=== PATIENT | female | born 1930 | race Caucasian/White ===

== ENCOUNTER 2016-11-24 12:13 | Inpatient (IN) | payer OTHER ==
[~2016-11-24] VITALS: Ht 160 cm; Wt 86.3 kg
[2016-11-24] MEDS ORDERED: DEXTROSE 50% SYRINGE 50 ML IV ONE (12:30)
[2016-11-24] MEDS ORDERED: DEXTROSE (50%) 50ML SYRG IV ONE (13:00)
[2016-11-24 13:06] LABS: Basophils # (auto) 0 uL; Eosinophils # (auto) 0 uL; Hematocrit 44.7 % (36.0-46.0); Hemoglobin 14.5 g/dL (12.2-16.2); Lymphocytes # (auto) 0.4 uL; Lymphocytes % (auto) 3.1 % (10.0-50.0); Mean Corpuscular Hemoglobin 30.9 pg (28.0-32.0); Mean Corpuscular Hgb Conc. 32.4 g/dL (32.0-36.0); Mean Corpuscular Volume 95.5 fL (80.0-100.0); Mean Platelet Volume 8.7 fL (7.4-10.4); Monocytes # (auto) 0.3 uL; Monocytes % (auto) 2.5 % (0.0-12.0); Neutrophils # (auto) 12.8 uL; Neutrophils % (auto) 94.4 % (37.0-80.0); Platelet Count (auto) 317 10^3/uL (140-450); Red Cell Distribution Width 13.3 % (11.6-16.0); White Blood Cell 13.6 10^3/uL (4.4-10.8)
[2016-11-24 13:14] LABS: BUN/Creatinine Ratio 15.8; Calcium 9.3 mg/dL (8.5-10.1); Magnesium 2.4 mg/dL (1.6-2.6); Potassium 3.7 mmol/L (3.5-5.1)
[2016-11-24 13:26] LABS: Bilirubin, Total 0.5 mg/dL (0.2-1.0); Total Protein 7.4 g/dL (6.4-8.2)
[2016-11-24] MEDS ORDERED: SODIUM CHLORIDE 0.9% 1,000 ML IV ONE (13:45)
[2016-11-24] MEDS ORDERED: LEVOFLOXACIN 500MG 100 ML IV ONE (13:45)
[2016-11-24] MEDS ORDERED: IPRATROPIUM BROM 0.5 MG/2.5ML INH SOL NEB ONE (13:45)
[2016-11-24] MEDS ORDERED: methylPREDNISolone SOD SUCC 125 MG/2 ML VL IV ONE (13:45)
[2016-11-24] MEDS ORDERED: ALBUTEROL SULF 2.5 MG/0.5ML(0.5%) NEB SOLN NEB ONE (13:45)
[2016-11-24 15:22] LABS: Lactic Acid 2.4 mmol/L (0.4-2.0)
[2016-11-24 15:28] LABS: REFLEX LACTIC ACID YES OR NO YES
[2016-11-24 15:58] LABS: B-Type Natriuretic Peptide 155.13 pg/mL (0-100); Temperature: 21.9 C (20.0-25.0)
[2016-11-24 17:34] LABS: Urine Bilirubin Negative (Negative); Urine Blood TRACE /uL (Negative); Urine Color Yellow (Yellow); Urine Glucose TRACE mg/dL (Normal); Urine Hyaline Cast FEW /lpf (0 - 2); Urine Nitrite Negative (Negative); Urine RBC 3 /hpf (0 - 4); Urine Squamous Epithelial Cell MOD /hpf (<5); Urine Urobilinogen Normal (Negative); Urine WBC Clumps PRESENT /hpf (None Seen)
[2016-11-24 17:54] LABS: Urine Ketone 1+ (Negative)
[2016-11-24] MEDS ORDERED: DEXTROSE (50%) 50ML SYRG IV PRN (18:00)
[2016-11-24] MEDS ORDERED: MORPHINE SULF INJ 2 MG/ML SYRINGE 1ML IV PRN ×2 (18:15)
[2016-11-24] MEDS ORDERED: TEMAZEPAM 15 MG CAP PO PRN (18:15)
[2016-11-24] MEDS ORDERED: DOCUSATE SOD 100 MG CAP PO PRN (18:15)
[2016-11-24] MEDS ORDERED: NITROGLYCERIN 0.4 MG SL TAB SL PRN (18:15)
[2016-11-24] MEDS ORDERED: ACETAMINOPHEN 325 MG TAB PO PRN (18:15)
[2016-11-24] MEDS ORDERED: HYDROcodone-ACET 5/325MG TAB PO PRN (18:15)
[2016-11-24] MEDS ORDERED: ONDANSETRON HCL 4 MG/2 ML VIAL IV PRN (18:15)
[2016-11-24 19:43] VITALS: BP 96/57
[2016-11-24 19:46] VITALS: BP 168/69
[2016-11-24] MEDS: ACCU-CHEK COMFORT CURVE STRIP VI SCH (21:51)
[2016-11-24 22:00] VITALS: BP 96/57
[2016-11-24] MEDS: ATORVASTATIN 20 MG TAB PO SCH (22:07)
[2016-11-24] MEDS: INSULIN DETEMIR(LEVEMIR) 1unit/0.01ml Soln (100units/ml) SC SCH (22:15)
[2016-11-24] MEDS: InsuLIN REG 1unit/0.01ml Soln (100units/ml) SC SCH (22:15)
[2016-11-24] MEDS: IPRATROPIUM BROM 0.5 MG/2.5ML INH SOL NEB SCH (22:45)
[2016-11-24] MEDS: ALBUTEROL SULF 2.5 MG/0.5ML(0.5%) NEB SOLN NEB SCH (22:45)
[2016-11-24] MEDS ORDERED: ASPI-498 PO (23:23)
[2016-11-24] MEDS ORDERED: FURO40TA4 PO (23:23)
[2016-11-24] MEDS ORDERED: HYDR1TAB97 PO (23:23)
[2016-11-24] MEDS ORDERED: INSLANTI SC ×2 (23:23)
[2016-11-24] MEDS ORDERED: LEVO200I5 PO (23:23)
[2016-11-24] MEDS ORDERED: MULTLIQ29 OR (23:23)
[2016-11-24] MEDS ORDERED: LOVA40TA72 PO (23:23)
[2016-11-24] MEDS ORDERED: CHOL100047 PO (23:23)
[2016-11-24] MEDS ORDERED: AMLO10TA2 PO (23:23)
[2016-11-24] MEDS ORDERED: LOS25T PO (23:23)
[2016-11-25] MEDS: methylPREDNISolone SOD SUCC 125 MG/2 ML VL IV SCH ×5 (00:14→23:56)
[2016-11-25] MEDS: SODIUM CHLOR 0.9% PF (SALINE LOCK) 10ML VIAL IV SCH ×4 (00:15→23:57)
[2016-11-25] MEDS ORDERED: PNEUMOCOCCAL VACC POLYS 25 MCG/0.5 ML VIAL IM ONE (04:15)
[2016-11-25] MEDS ORDERED: INFLUENZA QUAD 2016-2017 0.5 ML SYRG IM ONE (04:15)
[2016-11-25 05:00] VITALS: BP 136/66
[2016-11-25 06:36] LABS: Basophils # (auto) 0 uL; Eosinophils # (auto) 0 uL; Eosinophils % (auto) 0.1 % (0.0-7.0); Hematocrit 37.3 % (36.0-46.0); Hemoglobin 12.3 g/dL (12.2-16.2); Lymphocytes # (auto) 0.2 uL; Lymphocytes % (auto) 4.6 % (10.0-50.0); Mean Corpuscular Hgb Conc. 32.8 g/dL (32.0-36.0); Mean Corpuscular Volume 94.4 fL (80.0-100.0); Monocytes # (auto) 0 uL; Monocytes % (auto) 0.3 % (0.0-12.0); Platelet Count (auto) 241 10^3/uL (140-450); Red Cell Distribution Width 13.1 % (11.6-16.0); White Blood Cell 5.2 10^3/uL (4.4-10.8)
[2016-11-25 06:39] LABS: Albumin 2.6 g/dL (3.4-5.0); BUN/Creatinine Ratio 17.8; Bilirubin, Total 0.5 mg/dL (0.2-1.0); Calcium 8.7 mg/dL (8.5-10.1); Potassium 4.1 mmol/L (3.5-5.1); Total Protein 6.2 g/dL (6.4-8.2)
[2016-11-25] MEDS: ACCU-CHEK COMFORT CURVE STRIP VI SCH ×4 (07:02→22:00)
[2016-11-25] MEDS: LEVOTHYROXINE SODIUM 50 MCG TAB PO SCH (07:16)
[2016-11-25] MEDS: INSULIN DETEMIR(LEVEMIR) 1unit/0.01ml Soln (100units/ml) SC SCH ×2 (07:22→22:00)
[2016-11-25] MEDS: InsuLIN REG 1unit/0.01ml Soln (100units/ml) SC SCH ×4 (07:22→22:00)
[2016-11-25] MEDS: IPRATROPIUM BROM 0.5 MG/2.5ML INH SOL NEB SCH ×3 (07:24→22:20)
[2016-11-25] MEDS: ALBUTEROL SULF 2.5 MG/0.5ML(0.5%) NEB SOLN NEB SCH ×3 (07:24→22:20)
[2016-11-25] MEDS: Boost Glucose Control 8 Ounces PO SCH ×3 (08:29→17:53)
[2016-11-25 09:00] VITALS: BP 140/62
[2016-11-25] MEDS: MULTIPLE VITAMIN TAB PO SCH (09:34)
[2016-11-25] MEDS: ASPirin-EC 81 mg tab PO SCH (09:34)
[2016-11-25] MEDS: FUROSEMIDE 40 MG TAB PO SCH (09:34)
[2016-11-25] MEDS: amLODIPine BESYLATE 5 MG TAB PO SCH (09:35)
[2016-11-25] MEDS: FAMOTIDINE 20 MG TAB PO SCH (09:35)
[2016-11-25] MEDS: LOSARTAN POTASSIUM 25 MG TAB PO SCH (09:35)
[2016-11-25] MEDS: BUDESONIDE (INHALATION) 0.5 MG/2 ML NEB NEB SCH ×2 (10:07→22:20)
[2016-11-25 13:00] VITALS: BP 139/61
[2016-11-25 15:00] VITALS: BP 140/58
[2016-11-25 22:00] VITALS: BP 126/70
[2016-11-25] MEDS: ATORVASTATIN 20 MG TAB PO SCH (22:00)
[2016-11-26 05:00] VITALS: BP 146/71
[2016-11-26] MEDS: methylPREDNISolone SOD SUCC 125 MG/2 ML VL IV SCH ×3 (06:24→18:00)
[2016-11-26] MEDS: LEVOTHYROXINE SODIUM 50 MCG TAB PO SCH (06:24)
[2016-11-26] MEDS: SODIUM CHLOR 0.9% PF (SALINE LOCK) 10ML VIAL IV SCH ×2 (06:25→14:00)
[2016-11-26 06:45] LABS: Basophils # (auto) 0 uL; Eosinophils # (auto) 0 uL; Hematocrit 36.7 % (36.0-46.0); Hemoglobin 12.2 g/dL (12.2-16.2); Lymphocytes # (auto) 0.3 uL; Lymphocytes % (auto) 3.6 % (10.0-50.0); Mean Corpuscular Hemoglobin 31.4 pg (28.0-32.0); Mean Corpuscular Hgb Conc. 33.2 g/dL (32.0-36.0); Mean Corpuscular Volume 94.5 fL (80.0-100.0); Mean Platelet Volume 8.5 fL (7.4-10.4); Monocytes # (auto) 0.1 uL; Monocytes % (auto) 1.5 % (0.0-12.0); Neutrophils # (auto) 8.1 uL; Neutrophils % (auto) 94.9 % (37.0-80.0); Platelet Count (auto) 288 10^3/uL (140-450); Red Cell Distribution Width 13.4 % (11.6-16.0); White Blood Cell 8.6 10^3/uL (4.4-10.8)
[2016-11-26] MEDS: IPRATROPIUM BROM 0.5 MG/2.5ML INH SOL NEB SCH ×3 (06:57→22:20)
[2016-11-26] MEDS: ALBUTEROL SULF 2.5 MG/0.5ML(0.5%) NEB SOLN NEB SCH ×3 (06:57→22:20)
[2016-11-26] MEDS: BUDESONIDE (INHALATION) 0.5 MG/2 ML NEB NEB SCH ×2 (07:09→22:20)
[2016-11-26] MEDS: ACCU-CHEK COMFORT CURVE STRIP VI SCH ×4 (07:20→22:00)
[2016-11-26] MEDS: InsuLIN REG 1unit/0.01ml Soln (100units/ml) SC SCH ×4 (07:22→22:00)
[2016-11-26] MEDS: INSULIN DETEMIR(LEVEMIR) 1unit/0.01ml Soln (100units/ml) SC SCH ×2 (07:23→22:00)
[2016-11-26] MEDS: Boost Glucose Control 8 Ounces PO SCH ×3 (08:00→18:00)
[2016-11-26 08:32] LABS: BUN/Creatinine Ratio 20.4; Calcium 8.7 mg/dL (8.5-10.1)
[2016-11-26 09:00] VITALS: BP 122/67
[2016-11-26] MEDS: ASPirin-EC 81 mg tab PO SCH (09:26)
[2016-11-26] MEDS: FAMOTIDINE 20 MG TAB PO SCH (09:27)
[2016-11-26] MEDS: LOSARTAN POTASSIUM 25 MG TAB PO SCH (09:27)
[2016-11-26] MEDS: amLODIPine BESYLATE 5 MG TAB PO SCH (09:27)
[2016-11-26] MEDS: MULTIPLE VITAMIN TAB PO SCH (09:28)
[2016-11-26] MEDS: FUROSEMIDE 40 MG TAB PO SCH (09:28)
[2016-11-26] MEDS ORDERED: cefTRIAXone 1GM/50ML D5W 50 ML IV ONE (11:00)
[2016-11-26] MEDS ORDERED: AZITHROMYCIN 500MG/D5W 250ML 250 ML IV ONE (11:30)
[2016-11-26 13:00] VITALS: BP 139/61
[2016-11-26 17:14] VITALS: BP 144/64
[2016-11-26] MEDS: ATORVASTATIN 20 MG TAB PO SCH (21:51)
[2016-11-26 22:00] VITALS: BP 111/58
[2016-11-27 04:51] LABS: Basophils # (auto) 0 uL; Eosinophils # (auto) 0 uL; Hematocrit 39.7 % (36.0-46.0); Lymphocytes # (auto) 0.4 uL; Lymphocytes % (auto) 3.8 % (10.0-50.0); Mean Corpuscular Hemoglobin 30.9 pg (28.0-32.0); Mean Corpuscular Hgb Conc. 32.7 g/dL (32.0-36.0); Mean Corpuscular Volume 94.6 fL (80.0-100.0); Mean Platelet Volume 8.6 fL (7.4-10.4); Monocytes # (auto) 0.1 uL; Monocytes % (auto) 1.2 % (0.0-12.0); Neutrophils # (auto) 9.1 uL; Platelet Count (auto) 316 10^3/uL (140-450); Red Cell Distribution Width 13.2 % (11.6-16.0); White Blood Cell 9.6 10^3/uL (4.4-10.8)
[2016-11-27 05:00] VITALS: BP 130/53
[2016-11-27 05:10] LABS: Albumin 2.7 g/dL (3.4-5.0); BUN/Creatinine Ratio 22.3; Calcium 9.1 mg/dL (8.5-10.1); Potassium 4.1 mmol/L (3.5-5.1)
[2016-11-27 05:19] LABS: Bilirubin, Total 0.3 mg/dL (0.2-1.0); Total Protein 6.6 g/dL (6.4-8.2)
[2016-11-27] MEDS: LEVOTHYROXINE SODIUM 50 MCG TAB PO SCH (06:34)
[2016-11-27] MEDS: methylPREDNISolone SOD SUCC 125 MG/2 ML VL IV SCH ×4 (06:35→18:07)
[2016-11-27] MEDS: SODIUM CHLOR 0.9% PF (SALINE LOCK) 10ML VIAL IV SCH ×4 (06:35→22:22)
[2016-11-27] MEDS: ALBUTEROL SULF 2.5 MG/0.5ML(0.5%) NEB SOLN NEB SCH ×3 (06:50→21:54)
[2016-11-27] MEDS: IPRATROPIUM BROM 0.5 MG/2.5ML INH SOL NEB SCH ×3 (06:50→21:54)
[2016-11-27] MEDS: ACCU-CHEK COMFORT CURVE STRIP VI SCH ×4 (06:57→22:00)
[2016-11-27] MEDS: InsuLIN REG 1unit/0.01ml Soln (100units/ml) SC SCH ×4 (07:02→22:31)
[2016-11-27] MEDS: INSULIN DETEMIR(LEVEMIR) 1unit/0.01ml Soln (100units/ml) SC SCH ×2 (07:03→22:31)
[2016-11-27] MEDS: Boost Glucose Control 8 Ounces PO SCH ×3 (08:00→18:08)
[2016-11-27 08:58] VITALS: BP 122/54
[2016-11-27] MEDS: AZITHROMYCIN 500MG/D5W 250ML 250 ML IV SCH (10:37)
[2016-11-27] MEDS: MULTIPLE VITAMIN TAB PO SCH (10:37)
[2016-11-27] MEDS: cefTRIAXone 1GM/50ML D5W 50 ML IV SCH (10:37)
[2016-11-27] MEDS: amLODIPine BESYLATE 5 MG TAB PO SCH (10:38)
[2016-11-27] MEDS: ASPirin-EC 81 mg tab PO SCH (10:38)
[2016-11-27] MEDS: FAMOTIDINE 20 MG TAB PO SCH (10:38)
[2016-11-27] MEDS: LOSARTAN POTASSIUM 25 MG TAB PO SCH (10:39)
[2016-11-27] MEDS: FUROSEMIDE 40 MG TAB PO SCH (10:39)
[2016-11-27 12:55] VITALS: BP 116/55
[2016-11-27] MEDS: BUDESONIDE (INHALATION) 0.5 MG/2 ML NEB NEB SCH ×2 (13:47→21:54)
[2016-11-27] MEDS ORDERED: LACTULOSE 20Gm/30ML SOLN PO PRN (16:45)
[2016-11-27 17:00] VITALS: BP 123/54
[2016-11-27 20:40] VITALS: BP 123/54
[2016-11-27 21:51] VITALS: BP 140/60
[2016-11-27] MEDS: ATORVASTATIN 20 MG TAB PO SCH (22:22)
[2016-11-28] MEDS: methylPREDNISolone SOD SUCC 125 MG/2 ML VL IV SCH ×4 (00:11→17:22)
[2016-11-28 04:50] VITALS: BP 137/72
[2016-11-28] MEDS: SODIUM CHLOR 0.9% PF (SALINE LOCK) 10ML VIAL IV SCH ×3 (05:55→22:08)
[2016-11-28] MEDS: ACCU-CHEK COMFORT CURVE STRIP VI SCH ×4 (05:56→22:04)
[2016-11-28] MEDS: LEVOTHYROXINE SODIUM 50 MCG TAB PO SCH (05:56)
[2016-11-28] MEDS: INSULIN DETEMIR(LEVEMIR) 1unit/0.01ml Soln (100units/ml) SC SCH ×2 (05:58→21:56)
[2016-11-28] MEDS: InsuLIN REG 1unit/0.01ml Soln (100units/ml) SC SCH ×4 (05:58→22:07)
[2016-11-28] MEDS: BUDESONIDE (INHALATION) 0.5 MG/2 ML NEB NEB SCH ×2 (06:21→22:28)
[2016-11-28] MEDS: IPRATROPIUM BROM 0.5 MG/2.5ML INH SOL NEB SCH ×3 (06:21→22:28)
[2016-11-28] MEDS: ALBUTEROL SULF 2.5 MG/0.5ML(0.5%) NEB SOLN NEB SCH ×3 (06:21→22:28)
[2016-11-28 06:30] LABS: Basophils # (auto) 0.1 uL; Basophils % (auto) 0.6 % (0.0-2.0); Eosinophils # (auto) 0 uL; Hematocrit 39.7 % (36.0-46.0); Hemoglobin 13.2 g/dL (12.2-16.2); Lymphocytes # (auto) 0.3 uL; Lymphocytes % (auto) 3.8 % (10.0-50.0); Mean Corpuscular Hemoglobin 31.4 pg (28.0-32.0); Mean Corpuscular Hgb Conc. 33.2 g/dL (32.0-36.0); Mean Corpuscular Volume 94.6 fL (80.0-100.0); Monocytes # (auto) 0.1 uL; Monocytes % (auto) 0.8 % (0.0-12.0); Neutrophils % (auto) 94.8 % (37.0-80.0); Platelet Count (auto) 292 10^3/uL (140-450); White Blood Cell 8.5 10^3/uL (4.4-10.8)
[2016-11-28 07:14] LABS: Potassium 4.3 mmol/L (3.5-5.1)
[2016-11-28 07:26] LABS: Albumin 2.6 g/dL (3.4-5.0); Calcium 8.8 mg/dL (8.5-10.1)
[2016-11-28 07:29] LABS: Bilirubin, Total 0.3 mg/dL (0.2-1.0); Total Protein 6.2 g/dL (6.4-8.2)
[2016-11-28] MEDS: Boost Glucose Control 8 Ounces PO SCH ×3 (08:00→17:22)
[2016-11-28] MEDS: cefTRIAXone 1GM/50ML D5W 50 ML IV SCH (08:51)
[2016-11-28 08:55] VITALS: BP 138/55
[2016-11-28] MEDS: AZITHROMYCIN 500MG/D5W 250ML 250 ML IV SCH (10:48)
[2016-11-28] MEDS: amLODIPine BESYLATE 5 MG TAB PO SCH (10:49)
[2016-11-28] MEDS: FAMOTIDINE 20 MG TAB PO SCH (10:50)
[2016-11-28] MEDS: FUROSEMIDE 40 MG TAB PO SCH (10:50)
[2016-11-28] MEDS: LOSARTAN POTASSIUM 25 MG TAB PO SCH (10:50)
[2016-11-28] MEDS: ASPirin-EC 81 mg tab PO SCH (10:50)
[2016-11-28] MEDS: MULTIPLE VITAMIN TAB PO SCH (10:50)
[2016-11-28 12:51] VITALS: BP 154/57
[2016-11-28 16:32] VITALS: BP 151/57
[2016-11-28 21:08] VITALS: BP 147/62
[2016-11-28 21:10] LABS: Subtype Novel H1N1 by PCR Negative (Negative)
[2016-11-28] MEDS: ATORVASTATIN 20 MG TAB PO SCH (21:50)
[2016-11-29] MEDS: methylPREDNISolone SOD SUCC 125 MG/2 ML VL IV SCH ×3 (00:22→11:41)
[2016-11-29 04:48] VITALS: BP 127/47
[2016-11-29] MEDS: SODIUM CHLOR 0.9% PF (SALINE LOCK) 10ML VIAL IV SCH ×2 (05:39→11:41)
[2016-11-29] MEDS: LEVOTHYROXINE SODIUM 50 MCG TAB PO SCH (06:29)
[2016-11-29] MEDS: ACCU-CHEK COMFORT CURVE STRIP VI SCH ×3 (06:30→17:00)
[2016-11-29] MEDS: InsuLIN REG 1unit/0.01ml Soln (100units/ml) SC SCH ×3 (06:43→17:00)
[2016-11-29] MEDS: INSULIN DETEMIR(LEVEMIR) 1unit/0.01ml Soln (100units/ml) SC SCH (06:44)
[2016-11-29] MEDS: Boost Glucose Control 8 Ounces PO SCH ×3 (08:00→18:00)
[2016-11-29 08:54] VITALS: BP 121/56
[2016-11-29] MEDS: cefTRIAXone 1GM/50ML D5W 50 ML IV SCH (09:00)
[2016-11-29] MEDS: AZITHROMYCIN 500MG/D5W 250ML 250 ML IV SCH (09:59)
[2016-11-29] MEDS: FUROSEMIDE 40 MG TAB PO SCH (10:01)
[2016-11-29] MEDS: LOSARTAN POTASSIUM 25 MG TAB PO SCH (10:01)
[2016-11-29] MEDS: FAMOTIDINE 20 MG TAB PO SCH (10:01)
[2016-11-29] MEDS: ASPirin-EC 81 mg tab PO SCH (10:01)
[2016-11-29] MEDS: MULTIPLE VITAMIN TAB PO SCH (10:02)
[2016-11-29] MEDS: amLODIPine BESYLATE 5 MG TAB PO SCH (10:02)
[2016-11-29 13:00] VITALS: BP 133/69
[2016-11-29] MEDS: IPRATROPIUM BROM 0.5 MG/2.5ML INH SOL NEB SCH (14:00)
[2016-11-29] MEDS: ALBUTEROL SULF 2.5 MG/0.5ML(0.5%) NEB SOLN NEB SCH (14:00)
[2016-11-29 17:00] VITALS: BP 124/61
== END 2016-11-29 17:54 | disposition home or self-care (01) | DRG 871 ==
LOC: ER 12:17 → TELE 12:18 → TELE-EAST 19:46 → EAST 11-27 09:31
PROVIDERS: ADMIT Internal Medicine; ATTEND Family Medicine
DX: A41.9 Sepsis, unspecified organism (principal); J69.0 Pneumonitis due to inhalation of food and vomit; G92 Toxic encephalopathy; N39.0 Urinary tract infection, site not specified; I50.32 Chronic diastolic (congestive) heart failure; E44.0 Moderate protein-calorie malnutrition; E87.0 Hyperosmolality and hypernatremia; N18.4 Chronic kidney disease, stage 4 (severe); I13.0 Hypertensive heart and chronic kidney disease with heart failure and stage 1 through stage 4 chronic kidney disease, or unspecified chronic kidney disease; E66.01 Morbid (severe) obesity due to excess calories; E10.22 Type 1 diabetes mellitus with diabetic chronic kidney disease; E10.649 Type 1 diabetes mellitus with hypoglycemia without coma; E10.65 Type 1 diabetes mellitus with hyperglycemia; Z79.4 Long term (current) use of insulin; Z87.01 Personal history of pneumonia (recurrent); Z83.3 Family history of diabetes mellitus; E78.5 Hyperlipidemia, unspecified; E78.00 Pure hypercholesterolemia, unspecified; I15.9 Secondary hypertension, unspecified
CPT/HCPCS: 36415; 71010; 71020; 80048; 80053; 81001; 82962; 83036; 83605; 83735; 83880; 84484; 85025; 87040; 87501; 93005; 93306; 94640; 96365; 96375; 97001; 99291; J0696; J1815; J1956